=== PATIENT | female | born 1955 | race Caucasian/White ===

== ENCOUNTER 2020-06-13 12:40 | Inpatient (IN) | payer OTHER ==
[2020-06-13 14:12] LABS: BASO % 0.7 % (0-2.0); EOS % 0.2 % (0-4.5); HEMATOCRIT 30.6 % (32.4-45.2); HEMOGLOBIN 10.1 GM/dL (10.7-15.3); LYMPH % 13.7 % (8-40); MCH 27.5 pg (25.7-33.7); MEAN CELL VOLUME 83.2 fl (80-96); MEAN PLT VOLUME 7.4 fl (7.5-11.1); MONO % 5.4 % (3.8-10.2); PLATELET COUNT 179 K/MM3 (134-434); RBC 3.68 M/mm3 (3.60-5.2); WHITE BLOOD COUNT 2.4 K/mm3 (4.0-10.0)
[2020-06-13 14:23] LABS: INR 1.04 (0.83-1.09); PROTHROMBIN TIME (PATIENT) 12.6 SEC (9.7-13.0)
[2020-06-13 14:26] LABS: ACTIVATED PTT 28.4 SECONDS (25.2-36.5)
[2020-06-13 14:37] LABS: CHLORIDE 96 mmol/L (98-107); POTASSIUM 3.9 mmol/L (3.5-5.1); SODIUM 128 mmol/L (136-145)
[2020-06-13 14:39] LABS: ALBUMIN 2.3 g/dl (3.4-5.0); ANION GAP 6 MMOL/L (8-16); BLOOD UREA NITROGEN 8.1 mg/dL (7-18); CO2 26 mmol/L (21-32); MAGNESIUM 1.7 mg/dL (1.8-2.4)
[2020-06-13] MEDS ORDERED: MAGNESIUM SULF 50% (8.12 MEQ/2 ML-1 GM VIAL) IVPB ONE (14:39)
[2020-06-13 14:42] LABS: CREATININE 0.6 mg/dL (0.55-1.3); SGOT/AST 38 U/L (15-37); SGPT/ALT 18 U/L (13-61)
[2020-06-13 14:44] LABS: BILIRUBIN,TOTAL 0.3 mg/dL (0.2-1); TOT PROT 6.8 g/dl (6.4-8.2)
[2020-06-13 14:45] LABS: ALK PHOS 146 U/L (45-117)
[2020-06-13 14:48] LABS: GLUCOSE,RANDOM 100 mg/dL (74-106)
[2020-06-13] MEDS ORDERED: MAGNESIUM SULFATE IN WATER 2 GM/50 ML IVPB IVPB ONE (14:48)
[2020-06-13 17:06] LABS: EPI CELLS >36 /uL (0-25.1); HYALINE CASTS 23 /uL (0-3.1); PH,URINE 7.5 (5.0-8.0); URINE APPEARANCE CLOUDY; URINE BACTERIA >9,000 /uL (0-1359); URINE BILIRUBIN NEGATIVE (NEGATIVE); URINE COLOR YELLOW; URINE GLUCOSE (UA) NEGATIVE (NEGATIVE); URINE KETONE NEGATIVE (NEGATIVE); URINE LEUK ESTERASE 1+ (NEGATIVE); URINE NITRITE POSITIVE (NEGATIVE); URINE PROTEIN 1+ (NEGATIVE); URINE RBC 6 /uL (0-23.9); URINE UROBILINOGEN 0.2 mg/dL (0.2-1.0); URINE WBC 95 /uL (0-25.8)
[2020-06-13] MEDS ORDERED: CEFTRIAXONE 1,000 MG in DEXTROSE 5%-WATER - 50 ML IVPB ONE (17:24)
[2020-06-13] MEDS ORDERED: SODIUM CHLORIDE 0.9% 500 ML INFUS.BAG IV ONE (17:43)
[2020-06-13] MEDS ORDERED: CEFTRIAXONE 1 GM/50 ML BAG ONE (17:54)
[2020-06-13] MEDS ORDERED: amLODIPine BESYLATE 5 MG TABLET (FP) PO ONE (19:23)
[2020-06-13] MEDS ORDERED: SODIUM CHLORIDE 1,000 ML IV SCH (19:30)
[2020-06-13] MEDS ORDERED: amLODIPine BESYLATE 5 MG TABLET (FP) ONE (19:45)
[2020-06-13 20:14] LABS: OSMOLALITY,SERUM 269 mosm/kg (278-305)
[2020-06-13 21:23] LABS: BLOOD UREA NITROGEN 7.6 mg/dL (7-18)
[2020-06-13 21:26] LABS: CREATININE 0.5 mg/dL (0.55-1.3)
[2020-06-14] MEDS ORDERED: LABETALOL HCL 5 MG/1 ML (200MG/40ML VIAL) IVPB ONE ×2 (00:23→00:40)
[2020-06-14] MEDS ORDERED: ACETAMINOPHEN 325 MG TABLET (FP) PO ONE (03:31)
[2020-06-14 07:33] LABS: HEMATOCRIT 27.3 % (32.4-45.2); HEMOGLOBIN 9.1 GM/dL (10.7-15.3); MCH 27.5 pg (25.7-33.7); MCHC 33.5 g/dl (32.0-36.0); MEAN CELL VOLUME 82.3 fl (80-96); MEAN PLT VOLUME 7.5 fl (7.5-11.1); PLATELET COUNT 173 K/MM3 (134-434); RBC 3.31 M/mm3 (3.60-5.2); RDW 17.2 % (11.6-15.6)
[2020-06-14 07:52] LABS: POTASSIUM 3.5 mmol/L (3.5-5.1)
[2020-06-14 08:02] LABS: CALCIUM 7.5 mg/dL (8.5-10.1)
[2020-06-14 08:03] LABS: BLOOD UREA NITROGEN 5.8 mg/dL (7-18)
[2020-06-14 08:06] LABS: CREATININE 0.4 mg/dL (0.55-1.3)
[2020-06-14 08:07] LABS: BILIRUBIN,TOTAL 0.3 mg/dL (0.2-1); TOT PROT 6.2 g/dl (6.4-8.2)
[2020-06-14] MEDS ORDERED: POTASSIUM CHLORIDE TABS 20 MEQ TABLET.ER (FP) PO ONE (08:23)
[2020-06-14] MEDS ORDERED: DEXTROSE 5%-WATER - 50 ML IVPB ONE (09:04)
[2020-06-14] MEDS ORDERED: cefTRIAXone SODIUM 1 GM VIAL ONE (09:04)
[2020-06-14] MEDS: ENOXAPARIN NA (PORCINE) 40 MG/0.4 ML DISP.SYRIN SQ SCH (09:14)
[2020-06-14] MEDS: CEFTRIAXONE 1 GM in DEXTROSE 5%-WATER - 50 ML IVPB SCH (09:15)
[2020-06-14] MEDS: amLODIPine BESYLATE 10 MG TABLET (FP) PO SCH (09:16)
[2020-06-14] MEDS: PANTOPRAZOLE 40 MG TABLET PO SCH (09:16)
[2020-06-14] MEDS: METOPROLOL TARTRATE 25 MG TABLET (FP) PO SCH (09:16)
[2020-06-14] MEDS: ESCITALOPRAM OXALATE 10 MG TABLET PO SCH (09:16)
[2020-06-14] MEDS: ASPIRIN COATED 81 MG TABLET.EC PO SCH (09:16)
[2020-06-14] MEDS ORDERED: PATIENT'S OWN MEDICATION (NON-FORMULARY) (Escitalopram Oxalate [Lexapro -] 5 MG Tablet) PO SCH (10:00)
[2020-06-14 10:46] LABS: WHITE BLOOD COUNT 1.9 K/mm3 (4.0-10.0)
[2020-06-14] MEDS ORDERED: ACETAMINOPHEN 325 MG TABLET (FP) PO PRN (13:12)
[2020-06-14] MEDS ORDERED: ACETAMINOPHEN 1000 MG/100 ML VIAL (NON FORMULARY) IVPB PRN (13:13)
[2020-06-14 15:18] LABS: SODIUM 130 mmol/L (136-145)
[2020-06-14] MEDS ORDERED: SODIUM CHLORIDE 1 GM TABLET PO ONE (15:58)
[2020-06-15 08:23] LABS: BASO % 0.7 % (0-2.0); HEMOGLOBIN 9.5 GM/dL (10.7-15.3); LYMPH % 24.3 % (8-40); MCH 27.8 pg (25.7-33.7); MCHC 33.8 g/dl (32.0-36.0); MEAN CELL VOLUME 82.4 fl (80-96); MEAN PLT VOLUME 7.8 fl (7.5-11.1); MONO % 6.7 % (3.8-10.2); NEUT % 67.3 % (42.8-82.8); PLATELET COUNT 157 K/MM3 (134-434); RDW 17.2 % (11.6-15.6)
[2020-06-15 08:33] LABS: WHITE BLOOD COUNT 1.7 K/mm3 (4.0-10.0)
[2020-06-15 08:38] LABS: POTASSIUM 4.4 mmol/L (3.5-5.1)
[2020-06-15 08:40] LABS: CALCIUM 7.5 mg/dL (8.5-10.1)
[2020-06-15 08:41] LABS: BLOOD UREA NITROGEN 7.8 mg/dL (7-18); MAGNESIUM 1.7 mg/dL (1.8-2.4)
[2020-06-15 08:44] LABS: CREATININE 0.5 mg/dL (0.55-1.3)
[2020-06-15] MEDS ORDERED: MAGNESIUM OXIDE 400 MG TABLET (FP) PO ONE (08:44)
[2020-06-15 08:45] LABS: BILIRUBIN,TOTAL 0.3 mg/dL (0.2-1); TOT PROT 6.2 g/dl (6.4-8.2)
[2020-06-15] MEDS ORDERED: DEXTROSE 5%-WATER - 50 ML IVPB ONE (09:55)
[2020-06-15] MEDS ORDERED: cefTRIAXone SODIUM 1 GM VIAL ONE (09:55)
[2020-06-15] MEDS ORDERED: POTASSIUM CHLORIDE TABS 20 MEQ TABLET.ER (FP) PO SCH (10:00)
[2020-06-15] MEDS ORDERED: MULTIVITAMINS (DAILY MVI) TABLET (FP) PO SCH (10:00)
[2020-06-15] MEDS ORDERED: FUROSEMIDE 20 MG TABLET (FP) PO SCH (10:00)
[2020-06-15] MEDS: AMINO ACIDS/PROTEIN HYDROLYS 30 ML LIQUID.PKT PO SCH ×2 (10:25→22:54)
[2020-06-15] MEDS: PANTOPRAZOLE 40 MG TABLET PO SCH (10:26)
[2020-06-15] MEDS: ENOXAPARIN NA (PORCINE) 40 MG/0.4 ML DISP.SYRIN SQ SCH (10:26)
[2020-06-15] MEDS: CEFTRIAXONE 1 GM in DEXTROSE 5%-WATER - 50 ML IVPB SCH (10:26)
[2020-06-15] MEDS: ESCITALOPRAM OXALATE 10 MG TABLET PO SCH (10:26)
[2020-06-15] MEDS: ASPIRIN COATED 81 MG TABLET.EC PO SCH (10:26)
[2020-06-15] MEDS: METOPROLOL TARTRATE 25 MG TABLET (FP) PO SCH (10:26)
[2020-06-15] MEDS: amLODIPine BESYLATE 10 MG TABLET (FP) PO SCH (10:26)
[2020-06-15 12:21] LABS: ANISOCYTOSIS 1+; MACROCYTOSIS 0; OVALOCYTE 1+; PLATELET ESTIMATE DECREASED
[2020-06-15] MEDS ORDERED: MAGNESIUM SULF 50% (8.12 MEQ/2 ML-1 GM VIAL) IVPB ONE (13:00)
[2020-06-15] MEDS: SODIUM CHLORIDE 1 GM TABLET PO SCH ×2 (13:24→22:31)
[2020-06-15] MEDS: ERTAPENEM SODIUM 1 GM in SODIUM CHLORIDE 50 ML IVPB SCH (13:25)
[2020-06-15 14:33] VITALS: BMI 18.2
[2020-06-15 15:17] LABS: ERYTHROCYTE SEDIMENTATION RATE 14 mm/hr (0-30)
[2020-06-15] MEDS: MEGESTROL ACETATE 40 MG TABLET PO SCH (18:43)
[2020-06-15] MEDS ORDERED: ACETAMINOPHEN 1000 MG/100 ML VIAL (NON FORMULARY) IVPB PRN (19:54)
[2020-06-16] MEDS: ASPIRIN COATED 81 MG TABLET.EC PO SCH (10:25)
[2020-06-16] MEDS: ERTAPENEM SODIUM 1 GM in SODIUM CHLORIDE 50 ML IVPB SCH (10:25)
[2020-06-16] MEDS: POTASSIUM CHLORIDE TABS 20 MEQ TABLET.ER (FP) PO SCH (10:25)
[2020-06-16] MEDS: PANTOPRAZOLE 40 MG TABLET PO SCH (10:26)
[2020-06-16] MEDS: AMINO ACIDS/PROTEIN HYDROLYS 30 ML LIQUID.PKT PO SCH ×2 (10:26→17:20)
[2020-06-16] MEDS: METOPROLOL TARTRATE 25 MG TABLET (FP) PO SCH (10:26)
[2020-06-16] MEDS: MEGESTROL ACETATE 40 MG TABLET PO SCH (10:26)
[2020-06-16] MEDS: amLODIPine BESYLATE 10 MG TABLET (FP) PO SCH (10:26)
[2020-06-16] MEDS: ESCITALOPRAM OXALATE 10 MG TABLET PO SCH (10:27)
[2020-06-16] MEDS: ENOXAPARIN NA (PORCINE) 40 MG/0.4 ML DISP.SYRIN SQ SCH (10:27)
[2020-06-16] MEDS: SODIUM CHLORIDE 1 GM TABLET PO SCH ×3 (10:27→21:03)
[2020-06-16] MEDS: MULTIVITAMINS (DAILY MVI) TABLET (FP) PO SCH (10:28)
[2020-06-16 10:43] LABS: BASO % 0.8 % (0-2.0); HEMATOCRIT 30.7 % (32.4-45.2); HEMOGLOBIN 9.1 GM/dL (10.7-15.3); LYMPH % 19.2 % (8-40); MCH 24.7 pg (25.7-33.7); MCHC 29.5 g/dl (32.0-36.0); MEAN CELL VOLUME 83.6 fl (80-96); MEAN PLT VOLUME 7.7 fl (7.5-11.1); MONO % 7.1 % (3.8-10.2); NEUT % 71.9 % (42.8-82.8); PLATELET COUNT 179 K/MM3 (134-434); RBC 3.68 M/mm3 (3.60-5.2)
[2020-06-16 11:26] LABS: ALBUMIN 2.1 g/dl (3.4-5.0)
[2020-06-16 11:27] LABS: BLOOD UREA NITROGEN 10.3 mg/dL (7-18); CALCIUM 7.5 mg/dL (8.5-10.1)
[2020-06-16 11:30] LABS: CREATININE 0.6 mg/dL (0.55-1.3)
[2020-06-16 11:31] LABS: BILIRUBIN,TOTAL 0.8 mg/dL (0.2-1); TOT PROT 6.4 g/dl (6.4-8.2)
[2020-06-16 11:40] LABS: WHITE BLOOD COUNT 1.9 K/mm3 (4.0-10.0)
[2020-06-16] MEDS: FUROSEMIDE 20 MG TABLET (FP) PO SCH (12:42)
[2020-06-16 12:44] LABS: ANISOCYTOSIS 1+; MACROCYTOSIS 0; OVALOCYTE 1+; PLATELET ESTIMATE NORMAL
[2020-06-17] MEDS: SODIUM CHLORIDE 1 GM TABLET PO SCH ×3 (05:06→21:08)
[2020-06-17] MEDS: AMINO ACIDS/PROTEIN HYDROLYS 30 ML LIQUID.PKT PO SCH ×2 (08:34→17:38)
[2020-06-17 10:09] LABS: BASO % 0.6 % (0-2.0); EOS % 0.4 % (0-4.5); HEMATOCRIT 32.1 % (32.4-45.2); HEMOGLOBIN 10.5 GM/dL (10.7-15.3); LYMPH % 25.2 % (8-40); MCH 27.5 pg (25.7-33.7); MCHC 32.8 g/dl (32.0-36.0); MEAN CELL VOLUME 83.7 fl (80-96); MEAN PLT VOLUME 7.6 fl (7.5-11.1); MONO % 4.7 % (3.8-10.2); NEUT % 69.1 % (42.8-82.8); PLATELET COUNT 180 K/MM3 (134-434); RBC 3.83 M/mm3 (3.60-5.2); RDW 17.5 % (11.6-15.6)
[2020-06-17 10:23] LABS: POTASSIUM 4.2 mmol/L (3.5-5.1)
[2020-06-17] MEDS: METOPROLOL TARTRATE 25 MG TABLET (FP) PO SCH (10:25)
[2020-06-17] MEDS: POTASSIUM CHLORIDE TABS 20 MEQ TABLET.ER (FP) PO SCH (10:25)
[2020-06-17] MEDS: ASPIRIN COATED 81 MG TABLET.EC PO SCH (10:25)
[2020-06-17] MEDS: PANTOPRAZOLE 40 MG TABLET PO SCH (10:26)
[2020-06-17] MEDS: FUROSEMIDE 20 MG TABLET (FP) PO SCH (10:26)
[2020-06-17] MEDS: MEGESTROL ACETATE 40 MG TABLET PO SCH (10:26)
[2020-06-17] MEDS: ESCITALOPRAM OXALATE 10 MG TABLET PO SCH (10:26)
[2020-06-17] MEDS: amLODIPine BESYLATE 10 MG TABLET (FP) PO SCH (10:26)
[2020-06-17] MEDS: MULTIVITAMINS (DAILY MVI) TABLET (FP) PO SCH (10:26)
[2020-06-17 10:28] LABS: CALCIUM 7.9 mg/dL (8.5-10.1)
[2020-06-17] MEDS: ERTAPENEM SODIUM 1 GM in SODIUM CHLORIDE 50 ML IVPB SCH (10:28)
[2020-06-17] MEDS: ENOXAPARIN NA (PORCINE) 40 MG/0.4 ML DISP.SYRIN SQ SCH (10:28)
[2020-06-17 10:29] LABS: ALBUMIN 2.2 g/dl (3.4-5.0); BLOOD UREA NITROGEN 20.6 mg/dL (7-18); MAGNESIUM 1.9 mg/dL (1.8-2.4)
[2020-06-17 10:32] LABS: CREATININE 0.6 mg/dL (0.55-1.3)
[2020-06-17 10:33] LABS: BILIRUBIN,TOTAL 0.3 mg/dL (0.2-1); TOT PROT 6.4 g/dl (6.4-8.2)
[2020-06-18] MEDS: SODIUM CHLORIDE 1 GM TABLET PO SCH ×3 (05:43→22:57)
[2020-06-18] MEDS: AMINO ACIDS/PROTEIN HYDROLYS 30 ML LIQUID.PKT PO SCH ×2 (08:23→16:34)
[2020-06-18] MEDS: POTASSIUM CHLORIDE TABS 20 MEQ TABLET.ER (FP) PO SCH (09:35)
[2020-06-18] MEDS: amLODIPine BESYLATE 10 MG TABLET (FP) PO SCH (09:36)
[2020-06-18] MEDS: FUROSEMIDE 20 MG TABLET (FP) PO SCH (09:36)
[2020-06-18] MEDS: MEGESTROL ACETATE 40 MG TABLET PO SCH (09:36)
[2020-06-18] MEDS: ASPIRIN COATED 81 MG TABLET.EC PO SCH (09:36)
[2020-06-18] MEDS: METOPROLOL TARTRATE 25 MG TABLET (FP) PO SCH (09:37)
[2020-06-18] MEDS: ESCITALOPRAM OXALATE 10 MG TABLET PO SCH (09:37)
[2020-06-18] MEDS: PANTOPRAZOLE 40 MG TABLET PO SCH (09:37)
[2020-06-18] MEDS: MULTIVITAMINS (DAILY MVI) TABLET (FP) PO SCH (09:37)
[2020-06-18] MEDS: ERTAPENEM SODIUM 1 GM in SODIUM CHLORIDE 50 ML IVPB SCH (09:39)
[2020-06-18] MEDS: ENOXAPARIN NA (PORCINE) 40 MG/0.4 ML DISP.SYRIN SQ SCH (09:39)
[2020-06-18 10:23] LABS: BASO % 0.6 % (0-2.0); EOS % 0.9 % (0-4.5); HEMATOCRIT 31.8 % (32.4-45.2); HEMOGLOBIN 10.5 GM/dL (10.7-15.3); LYMPH % 18.3 % (8-40); MCH 27.5 pg (25.7-33.7); MCHC 32.9 g/dl (32.0-36.0); MEAN CELL VOLUME 83.6 fl (80-96); MEAN PLT VOLUME 8.3 fl (7.5-11.1); MONO % 3.7 % (3.8-10.2); NEUT % 76.5 % (42.8-82.8); PLATELET COUNT 225 K/MM3 (134-434); RDW 17.1 % (11.6-15.6); WHITE BLOOD COUNT 2.4 K/mm3 (4.0-10.0)
[2020-06-18 10:31] LABS: POTASSIUM 4.3 mmol/L (3.5-5.1)
[2020-06-18 10:33] LABS: CALCIUM 8.3 mg/dL (8.5-10.1)
[2020-06-18 10:34] LABS: ALBUMIN 2.3 g/dl (3.4-5.0); BLOOD UREA NITROGEN 21.6 mg/dL (7-18); MAGNESIUM 1.9 mg/dL (1.8-2.4)
[2020-06-18 10:37] LABS: CREATININE 0.6 mg/dL (0.55-1.3)
[2020-06-18 10:39] LABS: BILIRUBIN,TOTAL 0.2 mg/dL (0.2-1); TOT PROT 6.9 g/dl (6.4-8.2)
[2020-06-19] MEDS: SODIUM CHLORIDE 1 GM TABLET PO SCH ×3 (06:44→21:34)
[2020-06-19 09:10] LABS: BASO % 0.9 % (0-2.0); EOS % 1.4 % (0-4.5); HEMATOCRIT 31.6 % (32.4-45.2); HEMOGLOBIN 10.5 GM/dL (10.7-15.3); LYMPH % 21.7 % (8-40); MCH 27.7 pg (25.7-33.7); MCHC 33.2 g/dl (32.0-36.0); MEAN CELL VOLUME 83.4 fl (80-96); MEAN PLT VOLUME 7.7 fl (7.5-11.1); PLATELET COUNT 238 K/MM3 (134-434); RBC 3.78 M/mm3 (3.60-5.2); RDW 16.9 % (11.6-15.6); WHITE BLOOD COUNT 2.7 K/mm3 (4.0-10.0)
[2020-06-19 09:27] LABS: POTASSIUM 4.2 mmol/L (3.5-5.1)
[2020-06-19 09:32] LABS: ALBUMIN 2.4 g/dl (3.4-5.0); BLOOD UREA NITROGEN 21.3 mg/dL (7-18); CALCIUM 8.4 mg/dL (8.5-10.1)
[2020-06-19 09:33] LABS: MAGNESIUM 1.9 mg/dL (1.8-2.4)
[2020-06-19 09:35] LABS: CREATININE 0.5 mg/dL (0.55-1.3)
[2020-06-19 09:37] LABS: BILIRUBIN,TOTAL 0.9 mg/dL (0.2-1); TOT PROT 6.8 g/dl (6.4-8.2)
[2020-06-19] MEDS: AMINO ACIDS/PROTEIN HYDROLYS 30 ML LIQUID.PKT PO SCH ×2 (09:55→17:57)
[2020-06-19] MEDS: ERTAPENEM SODIUM 1 GM in SODIUM CHLORIDE 50 ML IVPB SCH (11:17)
[2020-06-19] MEDS: METOPROLOL TARTRATE 25 MG TABLET (FP) PO SCH (11:17)
[2020-06-19] MEDS: ASPIRIN COATED 81 MG TABLET.EC PO SCH (11:17)
[2020-06-19] MEDS: MULTIVITAMINS (DAILY MVI) TABLET (FP) PO SCH (11:17)
[2020-06-19] MEDS: POTASSIUM CHLORIDE TABS 20 MEQ TABLET.ER (FP) PO SCH (11:18)
[2020-06-19] MEDS: PANTOPRAZOLE 40 MG TABLET PO SCH (11:18)
[2020-06-19] MEDS: ESCITALOPRAM OXALATE 10 MG TABLET PO SCH (11:19)
[2020-06-19] MEDS: ENOXAPARIN NA (PORCINE) 40 MG/0.4 ML DISP.SYRIN SQ SCH (11:22)
[2020-06-19] MEDS: MEGESTROL ACETATE 40 MG TABLET PO SCH (11:22)
[2020-06-19] MEDS: amLODIPine BESYLATE 10 MG TABLET (FP) PO SCH (11:25)
[2020-06-19] MEDS: FUROSEMIDE 20 MG TABLET (FP) PO SCH (11:25)
[2020-06-20 07:54] LABS: BASO % 0.6 % (0-2.0); EOS % 1.4 % (0-4.5); HEMATOCRIT 29.4 % (32.4-45.2); HEMOGLOBIN 9.8 GM/dL (10.7-15.3); LYMPH % 17.9 % (8-40); MCH 27.7 pg (25.7-33.7); MCHC 33.4 g/dl (32.0-36.0); MEAN CELL VOLUME 82.8 fl (80-96); MEAN PLT VOLUME 7.8 fl (7.5-11.1); MONO % 5.7 % (3.8-10.2); NEUT % 74.4 % (42.8-82.8); PLATELET COUNT 229 K/MM3 (134-434); RBC 3.55 M/mm3 (3.60-5.2); WHITE BLOOD COUNT 2.3 K/mm3 (4.0-10.0)
[2020-06-20 08:31] LABS: POTASSIUM 4.3 mmol/L (3.5-5.1)
[2020-06-20 08:33] LABS: ALBUMIN 2.2 g/dl (3.4-5.0); CALCIUM 7.8 mg/dL (8.5-10.1)
[2020-06-20 08:34] LABS: BLOOD UREA NITROGEN 16.8 mg/dL (7-18); MAGNESIUM 1.9 mg/dL (1.8-2.4)
[2020-06-20 08:37] LABS: CREATININE 0.5 mg/dL (0.55-1.3)
[2020-06-20 08:38] LABS: BILIRUBIN,TOTAL 0.3 mg/dL (0.2-1); TOT PROT 6.4 g/dl (6.4-8.2)
[2020-06-20] MEDS: PANTOPRAZOLE 40 MG TABLET PO SCH (10:01)
[2020-06-20] MEDS: POTASSIUM CHLORIDE TABS 20 MEQ TABLET.ER (FP) PO SCH (10:01)
[2020-06-20] MEDS: AMINO ACIDS/PROTEIN HYDROLYS 30 ML LIQUID.PKT PO SCH ×2 (10:01→17:43)
[2020-06-20] MEDS: MULTIVITAMINS (DAILY MVI) TABLET (FP) PO SCH (10:02)
[2020-06-20] MEDS: METOPROLOL TARTRATE 25 MG TABLET (FP) PO SCH (10:02)
[2020-06-20] MEDS: FUROSEMIDE 20 MG TABLET (FP) PO SCH (10:03)
[2020-06-20] MEDS: SODIUM CHLORIDE 1 GM TABLET PO SCH ×2 (10:03→21:24)
[2020-06-20] MEDS: ESCITALOPRAM OXALATE 10 MG TABLET PO SCH (10:04)
[2020-06-20] MEDS: ERTAPENEM SODIUM 1 GM in SODIUM CHLORIDE 50 ML IVPB SCH (10:05)
[2020-06-20] MEDS: ENOXAPARIN NA (PORCINE) 40 MG/0.4 ML DISP.SYRIN SQ SCH (10:05)
[2020-06-20] MEDS: MEGESTROL ACETATE 40 MG TABLET PO SCH (10:05)
[2020-06-20] MEDS: amLODIPine BESYLATE 10 MG TABLET (FP) PO SCH (10:06)
[2020-06-20] MEDS: ASPIRIN COATED 81 MG TABLET.EC PO SCH (17:43)
[2020-06-21 09:39] LABS: BASO % 0.8 % (0-2.0); EOS % 1.4 % (0-4.5); HEMATOCRIT 27.8 % (32.4-45.2); HEMOGLOBIN 9.3 GM/dL (10.7-15.3); LYMPH % 20.9 % (8-40); MCH 27.5 pg (25.7-33.7); MCHC 33.3 g/dl (32.0-36.0); MEAN CELL VOLUME 82.7 fl (80-96); MEAN PLT VOLUME 7.8 fl (7.5-11.1); MONO % 5.1 % (3.8-10.2); NEUT % 71.8 % (42.8-82.8); PLATELET COUNT 237 K/MM3 (134-434); RBC 3.37 M/mm3 (3.60-5.2); RDW 16.7 % (11.6-15.6); WHITE BLOOD COUNT 2.2 K/mm3 (4.0-10.0)
[2020-06-21 09:58] LABS: POTASSIUM 4.3 mmol/L (3.5-5.1)
[2020-06-21 10:05] LABS: BILIRUBIN,TOTAL 0.4 mg/dL (0.2-1)
[2020-06-21 10:08] LABS: TOT PROT 6.2 g/dl (6.4-8.2)
[2020-06-21 10:09] LABS: CALCIUM 8.4 mg/dL (8.5-10.1)
[2020-06-21 10:13] LABS: ALBUMIN 2.1 g/dl (3.4-5.0); MAGNESIUM 1.8 mg/dL (1.8-2.4)
[2020-06-21 10:17] LABS: CREATININE 0.5 mg/dL (0.55-1.3)
[2020-06-21 10:20] LABS: BLOOD UREA NITROGEN 17.6 mg/dL (7-18)
[2020-06-21] MEDS: ERTAPENEM SODIUM 1 GM in SODIUM CHLORIDE 50 ML IVPB SCH (10:39)
[2020-06-21] MEDS: AMINO ACIDS/PROTEIN HYDROLYS 30 ML LIQUID.PKT PO SCH ×2 (10:40→17:23)
[2020-06-21] MEDS: ENOXAPARIN NA (PORCINE) 40 MG/0.4 ML DISP.SYRIN SQ SCH (10:40)
[2020-06-21] MEDS: POTASSIUM CHLORIDE TABS 20 MEQ TABLET.ER (FP) PO SCH (10:41)
[2020-06-21] MEDS: MULTIVITAMINS (DAILY MVI) TABLET (FP) PO SCH (10:41)
[2020-06-21] MEDS: SODIUM CHLORIDE 1 GM TABLET PO SCH ×2 (10:41→21:03)
[2020-06-21] MEDS: METOPROLOL TARTRATE 25 MG TABLET (FP) PO SCH (10:41)
[2020-06-21] MEDS: amLODIPine BESYLATE 10 MG TABLET (FP) PO SCH (10:41)
[2020-06-21] MEDS: ASPIRIN COATED 81 MG TABLET.EC PO SCH (10:41)
[2020-06-21] MEDS: MEGESTROL ACETATE 40 MG TABLET PO SCH (10:42)
[2020-06-21] MEDS: FUROSEMIDE 20 MG TABLET (FP) PO SCH (10:42)
[2020-06-21] MEDS: ESCITALOPRAM OXALATE 10 MG TABLET PO SCH (10:42)
[2020-06-21] MEDS: PANTOPRAZOLE 40 MG TABLET PO SCH (10:42)
[2020-06-21] MEDS: LACTOBACILLUS ACIDOPHILUS 1 TABLET PO SCH (17:23)
[2020-06-22] MEDS: NYSTATIN 100,000 UNIT/GM TOPICAL CREAM 15 GM TUBE TP SCH ×4 (00:48→18:34)
[2020-06-22 10:40] LABS: BASO % 0.6 % (0-2.0); HEMATOCRIT 28.4 % (32.4-45.2); HEMOGLOBIN 9.5 GM/dL (10.7-15.3); LYMPH % 17.1 % (8-40); MCH 27.5 pg (25.7-33.7); MCHC 33.3 g/dl (32.0-36.0); MEAN CELL VOLUME 82.5 fl (80-96); MEAN PLT VOLUME 8.1 fl (7.5-11.1); MONO % 4.5 % (3.8-10.2); NEUT % 76.8 % (42.8-82.8); PLATELET COUNT 237 K/MM3 (134-434); RBC 3.44 M/mm3 (3.60-5.2); RDW 16.9 % (11.6-15.6)
[2020-06-22] MEDS: ERTAPENEM SODIUM 1 GM in SODIUM CHLORIDE 50 ML IVPB SCH (10:48)
[2020-06-22] MEDS: MEGESTROL ACETATE 40 MG TABLET PO SCH (10:48)
[2020-06-22] MEDS: amLODIPine BESYLATE 10 MG TABLET (FP) PO SCH (10:49)
[2020-06-22] MEDS: SODIUM CHLORIDE 1 GM TABLET PO SCH ×2 (10:49→21:08)
[2020-06-22] MEDS: ENOXAPARIN NA (PORCINE) 40 MG/0.4 ML DISP.SYRIN SQ SCH (10:49)
[2020-06-22] MEDS: FUROSEMIDE 20 MG TABLET (FP) PO SCH (10:49)
[2020-06-22] MEDS: PANTOPRAZOLE 40 MG TABLET PO SCH (10:56)
[2020-06-22] MEDS: AMINO ACIDS/PROTEIN HYDROLYS 30 ML LIQUID.PKT PO SCH ×3 (10:56→18:35)
[2020-06-22] MEDS: LACTOBACILLUS ACIDOPHILUS 1 TABLET PO SCH (10:56)
[2020-06-22] MEDS: ASPIRIN COATED 81 MG TABLET.EC PO SCH (10:56)
[2020-06-22] MEDS: POTASSIUM CHLORIDE TABS 20 MEQ TABLET.ER (FP) PO SCH (10:56)
[2020-06-22] MEDS: ESCITALOPRAM OXALATE 10 MG TABLET PO SCH (10:57)
[2020-06-22] MEDS: MULTIVITAMINS (DAILY MVI) TABLET (FP) PO SCH (10:58)
[2020-06-22 11:00] LABS: POTASSIUM 4.1 mmol/L (3.5-5.1)
[2020-06-22] MEDS: METOPROLOL TARTRATE 25 MG TABLET (FP) PO SCH (11:00)
[2020-06-22 11:05] LABS: ALBUMIN 2.1 g/dl (3.4-5.0); BLOOD UREA NITROGEN 19.1 mg/dL (7-18); CALCIUM 8.1 mg/dL (8.5-10.1); MAGNESIUM 1.8 mg/dL (1.8-2.4)
[2020-06-22 11:08] LABS: CREATININE 0.5 mg/dL (0.55-1.3)
[2020-06-22 11:10] LABS: BILIRUBIN,TOTAL 0.3 mg/dL (0.2-1); TOT PROT 6.2 g/dl (6.4-8.2)
[2020-06-22] MEDS: BANATROL PLUS POWDER PACKET PO SCH (21:08)
[2020-06-23] MEDS: NYSTATIN 100,000 UNIT/GM TOPICAL CREAM 15 GM TUBE TP SCH ×2 (01:21→13:00)
[2020-06-23] MEDS: ACETAMINOPHEN 325 MG TABLET (FP) PO PRN ×2 (02:53→10:15)
[2020-06-23 08:45] LABS: EOS % 1.7 % (0-4.5); HEMATOCRIT 27.9 % (32.4-45.2); HEMOGLOBIN 9.3 GM/dL (10.7-15.3); LYMPH % 23.3 % (8-40); MCH 27.8 pg (25.7-33.7); MCHC 33.3 g/dl (32.0-36.0); MEAN CELL VOLUME 83.3 fl (80-96); MONO % 5.4 % (3.8-10.2); NEUT % 68.6 % (42.8-82.8); PLATELET COUNT 228 K/MM3 (134-434); RBC 3.35 M/mm3 (3.60-5.2); RDW 16.5 % (11.6-15.6)
[2020-06-23 09:13] LABS: POTASSIUM 4.2 mmol/L (3.5-5.1)
[2020-06-23 09:15] LABS: BLOOD UREA NITROGEN 17.3 mg/dL (7-18)
[2020-06-23 09:16] LABS: ALBUMIN 2.1 g/dl (3.4-5.0); MAGNESIUM 1.7 mg/dL (1.8-2.4)
[2020-06-23 09:19] LABS: CREATININE 0.5 mg/dL (0.55-1.3)
[2020-06-23 09:20] LABS: BILIRUBIN,TOTAL 0.3 mg/dL (0.2-1); TOT PROT 6.2 g/dl (6.4-8.2)
[2020-06-23] MEDS: amLODIPine BESYLATE 10 MG TABLET (FP) PO SCH (09:36)
[2020-06-23] MEDS: AMINO ACIDS/PROTEIN HYDROLYS 30 ML LIQUID.PKT PO SCH ×2 (09:36→17:30)
[2020-06-23] MEDS: METOPROLOL TARTRATE 25 MG TABLET (FP) PO SCH (09:36)
[2020-06-23] MEDS: MULTIVITAMINS (DAILY MVI) TABLET (FP) PO SCH (09:36)
[2020-06-23] MEDS: ASPIRIN COATED 81 MG TABLET.EC PO SCH (09:36)
[2020-06-23] MEDS: PANTOPRAZOLE 40 MG TABLET PO SCH (09:37)
[2020-06-23] MEDS: FUROSEMIDE 20 MG TABLET (FP) PO SCH (09:37)
[2020-06-23] MEDS: ENOXAPARIN NA (PORCINE) 40 MG/0.4 ML DISP.SYRIN SQ SCH (09:37)
[2020-06-23] MEDS: LACTOBACILLUS ACIDOPHILUS 1 TABLET PO SCH (09:37)
[2020-06-23] MEDS: ESCITALOPRAM OXALATE 10 MG TABLET PO SCH (09:37)
[2020-06-23] MEDS: MEGESTROL ACETATE 40 MG TABLET PO SCH (09:37)
[2020-06-23] MEDS: SODIUM CHLORIDE 1 GM TABLET PO SCH (09:37)
[2020-06-23] MEDS: ERTAPENEM SODIUM 1 GM in SODIUM CHLORIDE 50 ML IVPB SCH (09:38)
[2020-06-23] MEDS: POTASSIUM CHLORIDE TABS 20 MEQ TABLET.ER (FP) PO SCH (09:40)
[2020-06-23] MEDS ORDERED: MAGNESIUM OXIDE 400 MG TABLET (FP) PO ONE (12:41)
[2020-06-23] MEDS: BANATROL PLUS POWDER PACKET PO SCH (14:18)
[2020-06-23 17:59] VITALS: BP 123/81; PULSE 100; TEMP 98.6
[2020-06-26 05:09] LABS: ANTI-DNAse B 560 U/mL (0-120)
== END 2020-06-23 18:10 | disposition home or self-care (01) | DRG 643 ==
LOC: JER 12:40 → INTOOBSV 17:53 → JERBED 17:53 → J4W 06-14 02:34 → INTOOBSV 06-14 13:59 → OBSVTOIN 06-14 13:59 → J5WEST-2 06-15 15:20 → OBSVTOIN 06-17 15:34
PROVIDERS: ADMIT Internal Medicine; ATTEND Nurse Practitioner Family
DX: E22.2 Syndrome of inappropriate secretion of antidiuretic hormone (principal); G93.41 Metabolic encephalopathy; N39.0 Urinary tract infection, site not specified; E46 Unspecified protein-calorie malnutrition; Z68.1 Body mass index [BMI] 19.9 or less, adult; D61.818 Other pancytopenia; D64.9 Anemia, unspecified; I10 Essential (primary) hypertension; E83.42 Hypomagnesemia; R55 Syncope and collapse; Z91.14 Patient's other noncompliance with medication regimen; G50.0 Trigeminal neuralgia; I16.0 Hypertensive urgency; E86.1 Hypovolemia; Z20.822 Contact with and (suspected) exposure to COVID-19; F03.90 Unspecified dementia, unspecified severity, without behavioral disturbance, psychotic disturbance, mood disturbance, and anxiety; E86.0 Dehydration
CPT/HCPCS: 36415; 70450-TC; 71045-TC-FY; 72125-TC; 73590-TC-RT-FY; 80048; 80053; 81003; 82436; 82550; 82565; 82962; 83735; 83930; 83935; 84100; 84295; 84300; 84484; 84540; 85025; 85027; 85610; 85651; 85730; 86038; 86140; 86160; 86215; 87086; 87186; 87324; 87449; 93005; 93010; 93970-TC; 97116-GP; 97161-GP; 99285-25; C9803; G0378; J8999; U0003

== ENCOUNTER 2024-02-05 16:53 | Observation (INO) | payer OTHER ==
[2024-02-05 20:28] LABS: BASO % 0.9 % (0-2.0); HEMATOCRIT 36.1 % (32.4-45.2); HEMOGLOBIN 11.9 GM/dL (10.7-15.3); LYMPH % 39.5 % (8-40); MEAN CELL VOLUME 78.9 fl (80-96); MEAN PLT VOLUME 7.2 fl (7.5-11.1); MONO % 8.6 % (3.8-10.2); PLATELET COUNT 234 10^3/uL (134-434); RBC 4.58 M/mm3 (3.60-5.2); RDW 17.4 % (11.6-15.6); WHITE BLOOD COUNT 4.5 K/mm3 (4.0-10.0)
[2024-02-05 20:35] LABS: INR 0.98 (0.83-1.09); PROTHROMBIN TIME (PATIENT) 11.3 SEC (9.7-13.0)
[2024-02-05 20:37] LABS: ACTIVATED PTT 26.6 SECONDS (25.2-36.5)
[2024-02-05] MEDS: SODIUM CHLORIDE 1,000 ML IV SCH (20:44)
[2024-02-05 20:47] LABS: POTASSIUM 5.2 mmol/L (3.5-5.1)
[2024-02-05 20:50] LABS: ALBUMIN 3.9 g/dl (3.4-5.0); CALCIUM 9.2 mg/dL (8.5-10.1)
[2024-02-05 20:52] LABS: BLOOD UREA NITROGEN 17.3 mg/dL (7-18)
[2024-02-05 20:54] LABS: CREATININE 0.8 mg/dL (0.55-1.3)
[2024-02-05 20:56] LABS: BILIRUBIN,TOTAL 0.5 mg/dL (0.2-1); TOT PROT 8.1 g/dl (6.4-8.2)
[2024-02-05 22:37] LABS: POTASSIUM 5.5 mmol/L (3.5-5.1)
[2024-02-05 22:38] LABS: CALCIUM 9.3 mg/dL (8.5-10.1); MAGNESIUM 2.3 mg/dL (1.8-2.4)
[2024-02-05 22:42] LABS: CREATININE 0.7 mg/dL (0.55-1.3)
[2024-02-06 02:24] LABS: EPI CELLS 12 /uL (0-25.1); HYALINE CASTS 0 /uL (0-3.1); URINE APPEARANCE CLEAR; URINE BACTERIA 602 /uL (0-1359); URINE BILIRUBIN NEGATIVE (NEGATIVE); URINE COLOR YELLOW; URINE GLUCOSE (UA) NEGATIVE (NEGATIVE); URINE KETONE NEGATIVE (NEGATIVE); URINE LEUK ESTERASE TRACE (NEGATIVE); URINE NITRITE NEGATIVE (NEGATIVE); URINE PROTEIN NEGATIVE (NEGATIVE); URINE RBC 5 /uL (0-23.9); URINE UROBILINOGEN 0.2 mg/dL (0.2-1.0); URINE WBC 42 /uL (0-25.8)
[2024-02-06] MEDS ORDERED: ACETAMINOPHEN 325 MG TABLET (FP) PO PRN ×2 (07:44→08:19)
[2024-02-06] MEDS ORDERED: amLODIPine BESYLATE 10 MG TABLET (FP) ONE (10:03)
[2024-02-06] MEDS ORDERED: ENOXAPARIN NA (PORCINE) 40 MG/0.4 ML DISP.SYRIN SQ ONE (10:03)
[2024-02-06] MEDS ORDERED: ACETAMINOPHEN 325 MG TABLET (FP) ONE (10:03)
[2024-02-06] MEDS: amLODIPine BESYLATE 10 MG TABLET (FP) PO SCH (10:12)
[2024-02-06] MEDS: ENOXAPARIN NA (PORCINE) 40 MG/0.4 ML DISP.SYRIN SQ SCH (10:12)
[2024-02-06 10:26] LABS: BASO % 0.5 % (0-2.0); EOS % 3.6 % (0-4.5); HEMATOCRIT 32.9 % (32.4-45.2); HEMOGLOBIN 10.8 GM/dL (10.7-15.3); LYMPH % 37.4 % (8-40); MCH 25.9 pg (25.7-33.7); MCHC 32.7 g/dl (32.0-36.0); MEAN CELL VOLUME 79.1 fl (80-96); MEAN PLT VOLUME 7.2 fl (7.5-11.1); MONO % 7.2 % (3.8-10.2); NEUT % 51.3 % (42.8-82.8); PLATELET COUNT 200 10^3/uL (134-434); RBC 4.16 M/mm3 (3.60-5.2); RDW 17.2 % (11.6-15.6); WHITE BLOOD COUNT 3.8 K/mm3 (4.0-10.0)
[2024-02-06 10:42] LABS: POTASSIUM 3.7 mmol/L (3.5-5.1)
[2024-02-06 10:45] LABS: ALBUMIN 3.4 g/dl (3.4-5.0); BLOOD UREA NITROGEN 16.7 mg/dL (7-18); CALCIUM 8.7 mg/dL (8.5-10.1)
[2024-02-06 10:48] LABS: CREATININE 0.9 mg/dL (0.55-1.3)
[2024-02-06 10:50] LABS: BILIRUBIN,TOTAL 0.2 mg/dL (0.2-1)
[2024-02-06] MEDS ORDERED: ASPIRIN COATED 81 MG TABLET.EC ONE (11:23)
[2024-02-06] MEDS: ASPIRIN COATED 81 MG TABLET.EC PO SCH (11:29)
[2024-02-06] MEDS ORDERED: carBAMazepine XR 200 MG TAB.ER.12H PO SCH (14:00)
[2024-02-06] MEDS ORDERED: METOPROLOL TARTRATE 50 MG TABLET (FP) ONE (15:46)
[2024-02-06] MEDS ORDERED: carBAMazepine 200 MG TABLET ONE (15:46)
[2024-02-06] MEDS: carBAMazepine 200 MG TABLET PO SCH (15:53)
[2024-02-06] MEDS: METOPROLOL TARTRATE 50 MG TABLET (FP) PO SCH (15:53)
[2024-02-07 03:26] VITALS: BMI 21.7
[2024-02-07 09:18] LABS: HEMATOCRIT 32.1 % (32.4-45.2); HEMOGLOBIN 10.7 GM/dL (10.7-15.3); MCH 26.3 pg (25.7-33.7); MCHC 33.2 g/dl (32.0-36.0); MEAN CELL VOLUME 79.3 fl (80-96); MEAN PLT VOLUME 7.4 fl (7.5-11.1); PLATELET COUNT 209 10^3/uL (134-434); RBC 4.05 M/mm3 (3.60-5.2); RDW 17.6 % (11.6-15.6); WHITE BLOOD COUNT 3.9 K/mm3 (4.0-10.0)
[2024-02-07 09:22] VITALS: RESP 20
[2024-02-07 09:29] LABS: POTASSIUM 4.4 mmol/L (3.5-5.1)
[2024-02-07 09:31] LABS: ALBUMIN 3.3 g/dl (3.4-5.0); CALCIUM 8.7 mg/dL (8.5-10.1)
[2024-02-07 09:32] LABS: BLOOD UREA NITROGEN 13.7 mg/dL (7-18)
[2024-02-07 09:35] LABS: CREATININE 0.7 mg/dL (0.55-1.3); PHOSPHOROUS 3.8 mg/dL (2.5-4.9)
[2024-02-07 09:36] LABS: BILIRUBIN,TOTAL 0.4 mg/dL (0.2-1); TOT PROT 7.1 g/dl (6.4-8.2)
[2024-02-08 10:41] VITALS: BP 160/75; PULSE 76; TEMP 98.2
[2024-02-08] MEDS ORDERED: ATORVASTATIN CA 80 MG TABLET (FP) PO SCH (22:00)
== END 2024-02-08 13:47 | disposition home or self-care (01) ==
LOC: JER 16:53 → JERBED 02-06 04:41 → UNDOADMOB 02-06 04:41 → OBSVTOIN 02-06 06:25 → INTOOBSV 02-06 06:25 → JERBED 02-06 21:06 → J8W 02-06 21:06 → JERBED 02-07 15:34 → J8W 02-07 15:34
PROVIDERS: ADMIT Internal Medicine; ATTEND Internal Medicine
PROC: 3E023GC Introduction of Other Therapeutic Substance into Muscle, Percutaneous Approach (ICD-10-PCS; principal; 2024-02-07)
PROC: 3E0337Z Introduction of Electrolytic and Water Balance Substance into Peripheral Vein, Percutaneous Approach (ICD-10-PCS; 2024-02-07)
DX: M21.42 Flat foot [pes planus] (acquired), left foot (principal); M06.9 Rheumatoid arthritis, unspecified; G20.A1 Parkinson's disease without dyskinesia, without mention of fluctuations; I10 Essential (primary) hypertension; G50.0 Trigeminal neuralgia; M21.942 Unspecified acquired deformity of hand, left hand; M21.941 Unspecified acquired deformity of hand, right hand; E87.5 Hyperkalemia; W18.39XA Other fall on same level, initial encounter; Y93.89 Activity, other specified; Y92.89 Other specified places as the place of occurrence of the external cause
CPT/HCPCS: 36415; 70450-TC; 71045-TC-FY; 72125-TC; 72130-TC; 72131-TC; 72170-TC-FY; 80048; 80053; 80061; 80156; 81003; 82550; 82607; 82746; 83036; 83735; 84100; 84443; 84484; 85025; 85027; 85610; 85730; 86850; 86900; 86901; 93005; 93010; 96360; 96372; 97116-GP; 99285-25; G0378; Q9967